=== PATIENT | female | born 1950 ===

== ENCOUNTER 2017-12-26 09:56 | Day surgery (SDC) | payer MEDICARE ==
[~2017-12-26 09:56] MED LIST: Buffered Lidocaine 0.9% SYRIN* 5 ML/SYR SYRINGE INTRADERM ONE; Dexamethasone IV* 4 MG/ML 1 ML (4 MG) IV SLOW PU ONE; Famotidine IV* 10 MG/ML 2 ML (20 mg) IV ONE
[2017-12-26] MEDS ORDERED: Dexamethasone IV* 4 MG/ML 1 ML (4 MG) ONE (10:02)
[2017-12-26] MEDS ORDERED: ceFAZolin 2 GM PREMIX (*) 2 GM/50 ML BAG IVPB ONE (10:02)
[2017-12-26] MEDS ORDERED: Famotidine IV* 10 MG/ML 2 ML (20 mg) ONE (10:02)
[2017-12-26] MEDS ORDERED: ROPIVACAINE 5 MG/ML 30 ML BTL (0.5%) ONE (10:25)
[2017-12-26] MEDS ORDERED: fentaNYL* 50 MCG/ML 2 ML VIAL (100 MCG VIAL) ONE ×2 (10:49→12:28)
[2017-12-26] MEDS ORDERED: Ondansetron INJ* 2 MG/ML VIAL ONE (10:50)
[2017-12-26] MEDS ORDERED: Midazolam* 1 MG/ML 5 ML VIAL (5 MG) ONE (10:50)
[2017-12-26] MEDS ORDERED: Neostigmine Methylsulfate* 1 MG/ML 10 ML VIAL (1 mg/ml) ONE (11:03)
[2017-12-26] MEDS ORDERED: Glycopyrrolate IV* 0.2 MG/ML 1 ML VIAL ONE ×2 (11:03→11:11)
[2017-12-26] MEDS ORDERED: Propofol* 10 MG/ML 20 ML BTL IV PUSH ONE (11:30)
[2017-12-26] MEDS ORDERED: Atracurium* 10 MG/ML 10 ML VIAL ONE (11:31)
[2017-12-26] MEDS ORDERED: Levalbuterol 0.63MG/3ML NEB* UNIT OF USE INH ONE ×2 (13:32)
[2017-12-26 14:16] VITALS: BP 133/62
--- NOTE | 2017-12-26 23:01 | OP ---
CC: PCP, Maegan Tilley MD * DATE OF OPERATION: 12/26/17 - [facility] DATE OF : 48 SURGEON: Carley Elkins MD SOFTWARE TOOLS DEVELOPER: NICHELLE Winchester ANESTHESIOLOGIST: Dr. Bonner. ANESTHESIA: General interscalene block. PRE-OP DIAGNOSES: Right shoulder complete tear of the rotator cuff with bicipital tendonitis. POST-OP DIAGNOSES: Right shoulder complete tear of the rotator cuff with bicipital tendonitis. OPERATIVE PROCEDURE: 1. Right shoulder arthroscopy with extensive glenohumeral debridement including biceps tenotomy. 2. Subacromial decompression with acromioplasty. 3. Rotator cuff repair of supraspinatus tendon. COMPLICATIONS: None. ESTIMATED BLOOD: Minimal. IMPLANTS USED: One 4.75 Healicoil, 1 MultiFix. INDICATIONS: Mamta Loya is a 67-year-old female who has had right shoulder pain for several months. She has failed conservative management. She was diagnosed with complete full thickness rotator cuff tear. She has elected to proceed with surgical treatment. Risks and benefits of surgery were discussed at length included but were not limited to bleeding; infection; damage to nerves , vessels, surrounding structures; wound nonhealing; persistent pain; need for surgery; scarring; stiffness; incomplete relief of symptoms; risks of anesthesia ; risk of DVT. She is elected to proceed. DESCRIPTION OF PROCEDURE: The patient was greeted in the preoperative area by the attending surgeon. Correct extremity was marked, consent was confirmed. The patient was brought back to the operating suite where she was placed in the supine position on the operating table. She underwent interscalene nerve block by anesthesiologist in the preoperative area. She was then brought back to the operating suite, she was placed supine position in the operating table. She underwent general anesthesia with endotracheal intubation after which she was placed in the left lateral decubitus position with an axillary roll. All bony prominences were padded. She was secured with peg board. The shoulder was draped unsterile with 10-pound retraction. The right shoulder was then prepped and draped in usual sterile fashion beginning with chlorhexidine soap, scrub, and alcohol wipe, and a final prep with ChloraPrep. After appropriate surgical pause indicating site, side, procedure, and administration of antibiotics, the standard postero-lateral portal was made sharply with an 11 blade. The scope was introduced into the joint. Joint was examined. There were grade 0 to 1 changes in the glenohumeral joint. The anterior posterior labrum had unstable fraying, the biceps had tearing of the superior labrum as well as along the sepsis of the biceps itself. The undersurface of the supraspinatus anteriorly was torn with a complete tear. The subscap has some mild fraying. The inferior recess was intact . There were no loose bodies. The anterior portal was made in outside fashion. The shaver was used to debride the anterior portion superior labrum, the biceps was then tenotomized. The shaver was then used to debride the undersurface of the supraspinatus. Once the intraarticular portion was completed attention was directed to the subacromial space. The lateral portal was made in an outside fashion. Shaver was used to debride back the bursa that was present, which is quite thick. This exposed the undersurface of the acromion, which is skeletonized using electrocautery device. This revealed spur, this was debrided back using a 4-0 oval omar. Once the acromioplasty was completed attention was directed to the rotator cuff. There was a full thickness tear about 2 cm of retraction, which will encompass the anterior portion of the supraspinatus tendon, which is starting to splint to longitudinal split, beginning of an L-shaped type tendon tear. The shaver was used to debride back the edges of the tendon. The greater tuberosity was prepared in usual fashion with electrocautery device, the rasp as well as a 4-0 oval omar. The rasps were used to gently reapproximate the rotator cuff repair. Once this was done through separate stab incision a 4.75 Helicoil was placed with excellent purchase. Bone quality was somewhat soft. The sutures were then passed into the tendon in horizontal mattress configuration. These were then tied down, arthroscopic knot tying there was a small dog ear therefore separate suture was then passed to correct the dog ear. Final images were obtained. The shoulder was taken through range of motion and found to be stable. The wounds were copiously irrigated with sterile saline. The portals were closed with 3-0 nylon. Sterile dresses were applied. A Cryo/Cuff as well as an UltraSling were placed. She was awoken from anesthesia and returned to PACU in stable condition. POSTOPERATIVE PLAN: She will be nonweightbearing. She will be in a sling for 6 weeks. She will be discharged on pain medication. DVT prophylaxis considered , but deferred due to no previous personal or family history. I will see the patient back in 10 to 14 days. [id number]/[facility] #: [id number] MTDD
== END 2017-12-26 14:38 | disposition home or self-care (01) ==
LOC: OREAST 09:56
PROVIDERS: ATTEND Orthopaedic Surgery
DX: S46.011A Strain of muscle(s) and tendon(s) of the rotator cuff of right shoulder, initial encounter (principal); S46.101A Unspecified injury of muscle, fascia and tendon of long head of biceps, right arm, initial encounter; I10 Essential (primary) hypertension; Z87.891 Personal history of nicotine dependence; E66.9 Obesity, unspecified; X50.9XXA Other and unspecified overexertion or strenuous movements or postures, initial encounter; Y92.9 Unspecified place or not applicable; G89.18 Other acute postprocedural pain
CPT/HCPCS: 88304; C1713; J0690; J1100; J2250; J2405; J2704; J2710; J2795; J3010